=== PATIENT | female | born 1995 | race African-American/Black ===

== ENCOUNTER 2017-04-11 08:17 | Emergency (ER) | payer BC, MEDICAID ==
[~2017-04-11] VITALS: Ht 167.6 cm; Wt 63.0 kg
[2017-04-11 11:05] VITALS: BP 104/71
== END 2017-04-11 11:07 | disposition home or self-care (01) ==
LOC: ER 08:40
DX: J45.901 Unspecified asthma with (acute) exacerbation (principal); H66.91 Otitis media, unspecified, right ear; H60.91 Unspecified otitis externa, right ear
CPT/HCPCS: 99283

== ENCOUNTER 2019-04-22 17:54 | Emergency (ER) | payer BC, MEDICAID ==
[~2019-04-22] VITALS: Ht 170.2 cm; Wt 64.0 kg
[2019-04-22] MEDS ORDERED: IBUPROFEN 600MG TABLET PO STA (19:16)
[2019-04-22 19:36] LABS: BASOPHILS % 0.6 % (0.0-2.0); EOSINOPHILS % 0.7 % (0.0-5.0); HEMATOCRIT. 43.8 % (36.0-48.0); HEMOGLOBIN. 14.6 g/dL (12.0-16.0); LYMPHOCYTES % 8.7 % (20.0-50.0); MEAN PLATELET VOLUME 8.2 fl (7.4-10.4); MONOCYTES % 4.8 % (2.0-8.0); NEUTROPHILS % 85.2 % (40.0-76.0); PLATELET 252 x1000/uL (130-400); RED BLOOD CELL COUNT 5.04 mill/uL (4.2-5.4); RED CELL DISTRIBUTION WIDTH 13.5 % (11.6-14.6)
[2019-04-22 19:40] LABS: CHLORIDE 108 mEq/L (98-107)
[2019-04-22 20:31] LABS: CLARITY URINE CLOUDY (CLEAR); COLOR URINE YELLOW (YELLOW); KETONES URINE 2+ (NEGATIVE); LEUKOCYTE ESTERASE URINE 3+ (NEGATIVE); NITRITE URINE POSITIVE (NEGATIVE); OCCULT BLOOD URINE TRACE (NEGATIVE); PH URINE 6.5 (4.5-8.0); PROTEIN URINE NEGATIVE (NEGATIVE); SPECIFIC GRAVITY URINE 1.022 (1.005-1.030)
[2019-04-22] MEDS ORDERED: AMOXICILLIN 500 MG CAPSULE PO ONE (20:45)
[2019-04-22 22:05] VITALS: BP 99/59
== END 2019-04-22 22:31 | disposition home or self-care (01) ==
LOC: ER 17:54
DX: N30.00 Acute cystitis without hematuria (principal); J45.909 Unspecified asthma, uncomplicated; Z90.89 Acquired absence of other organs
CPT/HCPCS: 36415; 74018; 80053; 81003; 81025; 85025; 87077; 87186; 99284